=== PATIENT | female | born 1980 | race Caucasian/White ===

== ENCOUNTER → 2017-03-24 | Day surgery (SDC) | payer BC ==
[2017-03-10 08:46] VITALS: Ht 160 cm; Wt 63.6 kg
[2017-03-22 16:59] LABS: BASO % 0.2 %; BASO ABS # 0.02 K/uL (0-0.2); COMPLETE YES; EOS % 2.3 %; IG% 0.2 %; LYMPH % 34.6 %; LYMPH ABS # 3.02 K/uL (1.2-3.4); MEAN CELL VOLUME 89.4 fL (80-100); MEAN CORPUSCULAR HEMOGLOBIN 30.3 pg (25-34); MEAN CORPUSCULAR HGB CONC 33.8 g/dl (32-36); MEAN PLATELET VOLUME 11.3 fL (7.4-10.4); MONO % 7.4 %; NEUT % 55.3 %; PLATELET COUNT 202 K/uL (130-400); RED BLOOD COUNT 4.36 M/uL (4.2-5.4); WHITE BLOOD COUNT 8.74 K/uL (4.8-10.8)
--- NOTE | 2017-03-22 17:21 | HISTORY & PHYSICAL EXAMINATION ---
DATE OF ADMISSION: 03/24/2017 ADMITTING DIAGNOSES: 1. Dysfunctional uterine bleeding. 2. Suspected endometrial polyp. ADMISSION HISTORY: The patient is a 36-year-old 2, para 2, last menstrual period of 17 March, who is admitted for diagnostic hysteroscopy with D&C for dysfunctional uterine bleeding with probable endometrial polyp. The patient was seen earlier this spring for her annual gynecological examination. At that time, she had noted a shortening of her menstrual cycles as well as midcycle spotting and postcoital bleeding. She underwent evaluation in the office including an office hysterosonogram. Office hysterosonogram showed a small posterior wall lesion consistent with a probable endometrial polyp. Treatment options were discussed with the patient and she is admitted for the above listed procedure. PAST MEDICAL HISTORY: OBSTETRICAL: Vaginal delivery x2. GYNECOLOGICAL: As above. MEDICAL: None. SURGICAL: Tonsil and adenoidectomy, wisdom teeth extraction. ALLERGIES: No known drug allergies. SOCIAL HISTORY: No smoking. FAMILY HISTORY: Noncontributory. REVIEW OF SYSTEMS: As per HPI. ADMISSION PHYSICAL EXAMINATION: GENERAL: Shows a pleasant female in no acute distress. VITAL SIGNS: Blood pressure 136/80, height of 5 feet 3 inches, and weight of 148 pounds. HEENT EXAMINATION: Unremarkable. NECK: Supple. LUNGS: Clear. HEART: With a regular rhythm and rate. ABDOMEN: Soft and nontender. PELVIC: Shows normal external genitalia. The vaginal vault is pink and rugated. Cervical os is multiparous and closed. Bimanual examination shows an anterior mobile uterus. Adnexa show no palpable masses. RECTAL: Confirmatory. EXTREMITIES: Showed no deep calf tenderness. NEUROLOGIC: Grossly intact. IMPRESSION: A 36-year-old G2, P2 with dysfunctional uterine bleeding, probable endometrial polyp for diagnostic hysteroscopy with D&C. PLAN: The risks, benefits and alternatives to the surgery have been discussed. While the benefits will be evaluation of the endometrial lining and removal of any tissue, the risks are bleeding, infection, inadvertent perforation of the uterus and failure to diagnose and/or treat the problem. The patient understands this. The permit has been signed and she wishes to proceed.
[~2017-03-24] VITALS: Ht 160 cm; Wt 63.6 kg
[~2017-03-24] MED LIST: CLR10 PO; DEXAMETHASONE SOD INJ 4 MG/ML VIAL ONE; FENTANYL CITRATE INJ 50 MCG/1 ML 2 ML VIAL ONE; IBUPROFEN 600 MG TAB PO PRN; KETOROLAC TROMETHAMINE 30 MG/ML VIAL IV. PRN; LACTATED RINGER'S 1000ML 1,000 ML IV SCH; LIDOCAINE HCL 2% 2 ML VIAL (20MG/ML) ONE; MIDAZOLAM HCL 1 MG/ML 2ML VIAL ONE; MTR600X PO; ONDANSETRON INJ 2 MG/ML 2 ML VIAL IV PRN; ONDANSETRON INJ 2 MG/ML 2 ML VIAL ONE; PROPOFOL IV EMULSION 10 MG/ML 20 ML VIAL IV ONE; SNG10 PO; SODIUM CHLORIDE 0.9% 1000ML 1,000 ML IV SCH; SPIR50TA2 PO; VNTHFA/IN INH
--- NOTE | 2017-03-24 12:45 | History & Physical Bridge - [place] ---
H&P Re-Evaluation Bridge Note: I have examined the patient, reviewed the History & Physical and in the interval since the performance of the History & Physical I have noted the following changes of clinical significance: No changes noted
--- NOTE | 2017-03-24 13:17 | [facility] Post Operative Brief Note ---
Immediate Operative Summary Operative Date Mar 24, 2017. Pre-Operative Diagnosis Dysfunctional uterine bleeding Post-Operative Diagnosis Same as pre-op Procedure(s) Performed 1) Examine under anesthesia, 2) Diagnostic Hysteroscopy, 3) Myosure resection of endometrial tissue Surgeon Dr. Landa Food Product Inspector Surgeon(s) None Estimated Blood Loss Minimal Findings Dx hysteroscopy showed patricia of tissue on anterior wall, possibly consistent with endometrial polyp. MyoSure resection of endometrial tissue and sent for pathological dx. Fluid deficit of 125cc Fluids (cc crystalloids) 700 Specimens A.Endometrial Myosure resection (tissue) Drains None Anesthesia General Complication(s) None Disposition Recovery Room / PACU
--- NOTE | 2017-03-24 13:21 | Discharge Instructions-SurgCtr ---
Discharge Instructions Date of Service Mar 24, 2017. Visit Reason for Visit: Dysfuntional Uterine Bleeding Discharge Discharge Diagnosis / Problem: same Discharge Goals Goal(s): Therapeutic intervention Activity Recommendations Activity Limitations: as noted below Anesthesia . Post Anesthesia Instructions: If you have had General Anesthesia or IV Sedation: * Do not drive today. * Resume driving when surgeon permits. * Do not make important decisions or sign legal documents today. * Call surgeon for: 1. Temperature elevations greater than 101 degrees F. 2. Uncontrollable pain. 3. Excessive bleeding. 4. Persistent nausea and vomiting. 5. Medication intolerance (nausea, vomiting or rash). * For nausea and vomiting use only clear liquids such as: tea, soda, bouillon until nausea subsides, then gradually increase diet as tolerated. * If you have any concerns or questions, call your surgeon's office. If physician is unavailable and it is an emergency, call 911 or go to the nearest emergency room. . Instructions / Follow-Up Instructions / Follow-Up ACTIVITY RECOMMENDATIONS: * Avoid tampons, douching, hot tubs, pools, and intercourse until bleeding has stopped. * May shower as usual. * No strenuous activity for 24-48 hours. After 24-48 hours, you may do anything you feel like doing (driving and sports are okay). SPECIAL CARE INSTRUCTIONS: Special Diet: * Mild nausea may occur in the immediate post-operative period. * Take clear liquids such as tea, cola or bouillon until all nausea has subsided; you may then resume your normal diet. Special Care: * Light bleeding and vaginal spotting can last from a few days to 3-4 weeks. Call your doctor if bleeding becomes heavier than the heaviest part of your period. * Check your temperature twice a day for one week. If it goes above 100.4 degrees Fahrenheit (38.0 Celsius), notify your doctor. * Call your doctor's office for an appointment for 6 weeks after your surgery. FOLLOW-UP VISIT: Call your doctor's office for an appointment for 6 weeks after your surgery. Diet Recommendations Home Diet: resume previous diet Procedures Procedures Performed: 1) Examine under anesthesia, 2) Diagnostic Hysteroscopy, 3) Myosure resection of endometrial tissue Pending Studies Studies pending at discharge: yes List of pending studies: Pathology Medical Emergencies . Who to Call and When: Medical Emergencies: If at any time you feel your situation is an emergency, please call 911 immediately. . Non-Emergent Contact Non-Emergency issues call your: Commercial Front Load Operator Call Non-Emergent contact if: you have a fever, temperature is above 100.5, your pain is not controlled, your pain is worsening . . "Provider Documentation" section prepared by Gerson Landa. .
--- NOTE | 2017-03-24 13:30 | OPERATIVE REPORT ---
DATE OF OPERATION: 03/24/2017 PREOPERATIVE DIAGNOSIS: Dysfunctional uterine bleeding. POSTOPERATIVE DIAGNOSIS: Same. PROCEDURES PERFORMED: 1. Diagnostic hysteroscopy. 2. MyoSure resection of an endometrial tissue. SURGEON: Dr. Gerson Landa. ANESTHESIA: General. FINDINGS: Hysteroscopic examination of the endometrial lining showed a dyssynchronous endometrial lining with tuft of tissue along the anterior wall. Using MyoSure instrument, the tissue was resected and sent for pathological evaluation. Fluid deficit for the procedure 125 mL. PROCEDURE IN DETAIL: The patient was taken to the operating room and after general anesthesia, was placed in dorsolithotomy position and draped and prepped in the usual fashion. Bladder was drained of any residual urine. Single tooth tenaculum was used to grasp the anterior lip of the cervix. The uterus was sounded to a depth of 8 cm and the cervical os was dilated with Forrester dilators to a Forrester #[id number]. The operative hysteroscope was inserted into the endometrial cavity with description as above. The MyoSure resection instrument was inserted through the outflow tract and under direct hysteroscopic guidance, tissue was excised. Hemostasis present. Fluid deficit for the procedure 125 mL. The patient was taken out of dorsal lithotomy to recovery room in satisfactory condition. I attest to the content of the Intraoperative Record and any orders documented therein. Any exception s are noted below.
--- NOTE | 2017-03-24 13:30 | Medical Student: [facility] ---
Immediate Operative Summary Operative Date Mar 24, 2017. Pre-Operative Diagnosis Dysfunctional uterine bleeding Post-Operative Diagnosis same Procedure(s) Performed Exam under anesthesia Diagnostic hysteroscopy with MyoSure resection of endometrial tissue Surgeon Dr. Landa Apiculturist Surgeon(s) None Estimated Blood Loss Minimal Findings Hernan of tissue present in the endometrium potentially could be polyp. Fluids (cc crystalloids) 700mL Specimens MyoSure resection of endometrial tissue Drains None Anesthesia General Complication(s) None Disposition Recovery Room / PACU
--- NOTE | 2017-03-24 14:21 | Anesthesia Progress Nt - [facility] ---
Anesthesia Post Op Note Date & Time Mar 24, 2017 at 14:21 Vital Signs Pain Intensity: 0 Vital Signs Past 12 Hours Date Time Temp Pulse Resp B/P (MAP) Pulse Ox O2 Delivery O2 Flow Rate FiO2 03/24/17 14:07 36.6 65 16 128/80 (96) 99 03/24/17 13:59 62 18 03/24/17 13:59 63 18 99 03/24/17 13:55 117/84 03/24/17 13:54 61 15 03/24/17 13:54 61 15 99 03/24/17 13:51 114/82 03/24/17 13:51 36.6 63 20 118/70 99 Room Air 03/24/17 13:49 65 11 99 03/24/17 13:49 64 11 03/24/17 13:45 126/81 03/24/17 13:44 71 21 03/24/17 13:44 69 21 98 03/24/17 13:41 141/77 03/24/17 13:39 77 14 98 03/24/17 13:39 79 14 03/24/17 13:35 125/80 03/24/17 13:34 85 16 03/24/17 13:34 84 16 100 03/24/17 13:30 127/81 03/24/17 13:29 92 32 100 03/24/17 13:29 91 32 03/24/17 13:26 126/83 03/24/17 13:24 98 16 100 03/24/17 13:24 98 16 03/24/17 13:21 123/75 03/24/17 13:20 124/70 03/24/17 13:19 37.1 81 16 124/70 100 Mask 6 03/24/17 11:50 36.9 72 18 120/78 (92) 100 Room Air Notes Mental Status: alert / awake / arousable, participated in evaluation Pt Amnestic to Procedure: Yes Nausea / Vomiting: adequately controlled Pain: adequately controlled Airway Patency, RR, SpO2: stable & adequate BP & HR: stable & adequate Hydration State: stable & adequate Anesthetic Complications: no major complications apparent
[2017-03-24 14:29] VITALS: BP 110/76; PULSE 61; O2SAT 98
== END | disposition home or self-care (01) ==
LOC: X.SURG 11:37
PROVIDERS: ATTEND Obstetrics & Gynecology
DX: N93.8 Other specified abnormal uterine and vaginal bleeding (principal); J45.909 Unspecified asthma, uncomplicated; K21.9 Gastro-esophageal reflux disease without esophagitis